=== PATIENT | male | born 1970 | race Hispanic/Latino ===

== ENCOUNTER 2017-12-07 19:41 | Emergency (ER) | payer MEDICAID ==
[~2017-12-07 19:41] MED LIST: CIPR-245 PO; FAMO-136 PO; LISI-613 PO; METF500T6 PO; METO50TA18 PO; METR500T PO
[2017-12-07] MEDS ORDERED: TETANUS/DIPHTHERIA TOXOID [ADULT] 0.5 ML VIAL IM ONE (19:52)
== END 2017-12-07 20:28 | disposition home or self-care (01) ==
LOC: EDH 19:41
DX: S91.331A Puncture wound without foreign body, right foot, initial encounter (principal); E11.9 Type 2 diabetes mellitus without complications; I10 Essential (primary) hypertension; J44.9 Chronic obstructive pulmonary disease, unspecified; Z79.4 Long term (current) use of insulin; W45.0XXA Nail entering through skin, initial encounter; Y93.89 Activity, other specified; Y92.098 Other place in other non-institutional residence as the place of occurrence of the external cause; Y99.8 Other external cause status
CPT/HCPCS: 73630; 90471; 90714